=== PATIENT | female | born 1990 | race Caucasian/White ===

== ENCOUNTER → 2025-07-14 09:36 | Outpatient (REF) | payer BC, SELFPAY | LOC: RCS 09:36 | PROVIDERS: ATTENDING PHYSICIAN Student in an Organized Health Care Education/Training Program; REFERRING PHYSICIAN Internal Medicine | DX: D89.84 IgG4-related disease (principal); H04.129 Dry eye syndrome of unspecified lacrimal gland; H93.8X3 Other specified disorders of ear, bilateral; K11.1 Hypertrophy of salivary gland; L53.8 Other specified erythematous conditions; L70.0 Acne vulgaris; M25.50 Pain in unspecified joint; M94.1 Relapsing polychondritis; R21 Rash and other nonspecific skin eruption; R22.0 Localized swelling, mass and lump, head; R74.01 Elevation of levels of liver transaminase levels; R80.9 Proteinuria, unspecified; Z82.69 Family history of other diseases of the musculoskeletal system and connective tissue | CPT/HCPCS: 93005 ==